=== PATIENT | female | born 1990 | race Two or more races ===

== ENCOUNTER 2021-01-28 18:23 | Emergency (ER) | payer OTHER ==
[~2021-01-28] VITALS: Ht 162.6 cm; Wt 102.1 kg
[~2021-01-28 18:23] MED LIST: ADDERALL 30 MG30 MG; MOTRIN800 MG PO; RISPERDAL0.5 MG
== END 2021-01-28 22:59 | disposition home or self-care (01) ==
LOC: ER 18:23
DX: S00.83XA Contusion of other part of head, initial encounter (principal); S10.83XA Contusion of other specified part of neck, initial encounter; V43.92XA Unspecified car occupant injured in collision with other type car in traffic accident, initial encounter; Y92.488 Other paved roadways as the place of occurrence of the external cause; Y93.89 Activity, other specified; Y99.8 Other external cause status

== ENCOUNTER 2024-08-07 15:16 | Emergency (ER) | payer OTHER ==
[~2024-08-07] VITALS: Ht 162.6 cm; Wt 102.1 kg
[2024-08-07] MEDS ORDERED: DEXAMETHASONE SODIUM PHOSPHATE 4 MG/ML VIAL IM ONE (17:15)
[2024-08-07] MEDS ORDERED: KETOROLAC TROMETHAMINE 60 MG VIAL IM ONE (17:15)
[2024-08-07] MEDS ORDERED: DEXAMETHASONE SODIUM PHOSPHATE 4 MG/ML VIAL ONE (17:25)
[2024-08-07] MEDS ORDERED: KETOROLAC TROMETHAMINE 30 MG VIAL ONE (17:25)
[2024-08-07] MEDS ORDERED: NORFLEX100MG PO (19:54)
[2024-08-07] MEDS ORDERED: IBU800 MG PO (19:54)
== END 2024-08-07 20:21 | disposition home or self-care (01) ==
LOC: ER 15:19
DX: M70.71 Other bursitis of hip, right hip (principal)